=== PATIENT | male | born 1950 | race Two or more races ===

== ENCOUNTER 2017-02-23 08:05 | Inpatient (IN) | payer MEDICARE, MEDICAID ==
[~2017-02-23] VITALS: Ht 180.3 cm; Wt 95.3 kg
[2017-02-23] VITALS (15 sets, daily range): BP systolic 118–140; BP diastolic 64–86
[~2017-02-23 08:05] MED LIST: ceFAZolin 1gm/50ml Premix 50 ML IV ONE
[2017-02-23] MEDS ORDERED: NKM (08:42)
[2017-02-23] MEDS ORDERED: cholesterol pill (08:52)
--- NOTE | 2017-02-23 09:43 | Pre-Procedure Note/Attestation ---
Pre-Procedure Note/Attestation Complete Prior to Procedure Planned Procedure: not applicable Procedure Narrative: Laparoscopic radical prostatectomy Indications for Procedure Pre-Operative Diagnosis: prostate cancer Attestation I attest that I discussed the nature of the procedure; its benefits; risks and complications; and alternatives (and the risks and benefits of such alternatives ), prior to the procedure, with the patient (or the patient's legal sales representative public utilities). I attest that, if there was a reasonable possibility of needing a blood transfusion, the patient (or the patient's legal sales representative public utilities) was given the [facility] standardized written summary, pursuant to the Chandana [place] Blood Safety Act ([place] Health and Safety Code # 1645, as amended). I attest that I re-evaluated the patient just prior to the surgery and that there has been no change in the patient's H&P, except as documented below: Oscar Appiah MD Feb 23, 2017 09:43
[2017-02-23] MEDS ORDERED: NS Irrig 1000ml ONE (10:00)
[2017-02-23] MEDS ORDERED: Zemuron 50mg/5ml Inj IV ONE (10:00)
[2017-02-23] MEDS ORDERED: Neostigmine 1mg/ml 10ml Inj ONE (10:00)
[2017-02-23] MEDS ORDERED: Sterile Water Irrig 1000ml IRRIG ONE (10:00)
[2017-02-23] MEDS ORDERED: LR 1000ml ONE (10:00)
[2017-02-23] MEDS ORDERED: Propofol 200mg/20ml IV ONE (10:00)
[2017-02-23] MEDS ORDERED: Midazolam 2mg/2ml Inj ONE (10:00)
[2017-02-23] MEDS ORDERED: Glycopyrrolate 0.2mg/ml 1ml Vial ONE (10:00)
[2017-02-23] MEDS ORDERED: Succinylcholine 20mg/ml 10ml vial ONE (10:00)
[2017-02-23] MEDS ORDERED: ePHEDrine 50mg/ml Inj ONE (10:00)
[2017-02-23] MEDS ORDERED: LR 1000ml 1,000 ML IVLG SCH (10:06)
--- NOTE | 2017-02-23 10:06 | Anethesia Preoperative Eval ---
Anesthesia Pre-op PMH/ROS General Date of Evaluation: Feb 23, 2017 Time of Evaluation: 09:51 Anesthesiologist: Hallie ASA Score: ASA 3 Mallampati Score Class I : Soft palate, uvula, fauces, pillars visible Class II: Soft palate, uvula, fauces visible Class III: Soft palate, base of uvula visible Class IV: Only hard plate visible Mallampati Classification: Class III Surgeon: Bijal Diagnosis: Prostate CA Surgical Procedure: lap retropubic radical prostatectomy Anesthesia History: none Family History: no anesthesia problems Allergies: Coded Allergies: No Known Allergies (Unverified , 02/22/17) Medications: see eMAR Past Medical History Cardiovascular: Reports: HTN, other - HL Endocrine: Reports: hypothyroidism Other: obesity PSxH Narrative: A CHILD Anesthesia Pre-op Phys. Exam Physician Exam Last Vital Signs Date Time Temp Pulse Resp B/P (MAP) Pulse Ox O2 Delivery O2 Flow Rate FiO2 02/23/17 08:53 97.7 69 18 140/83 95 Room Air Constitutional: NAD Cardiovascular: RRR Respiratory: CTA Airway Exam Mallampati Score: Class III MO: full ROM: full Teeth: missing Anesthesia Pre-op A/P Labs 13 hb Studies Pre-op Studies: EKG Risk Assessment & Plan Assessment: ASA 3 Plan: Bibi Lindsey M.D. Feb 23, 2017 10:06
[2017-02-23] MEDS ORDERED: Surgicel 4in x 8in TOPIC ONE (10:07)
[2017-02-23] MEDS ORDERED: Bupivacaine 0.5% Inj 30 ml vial INJ ONE (10:07)
[2017-02-23] MEDS ORDERED: Meperidine 25mg/0.5ml Inj (FOR RIGORS ONLY) IV PRN (10:15)
[2017-02-23] MEDS ORDERED: Hydromorphone 0.5mg/0.5ml inj IVP PRN (10:15)
[2017-02-23] MEDS ORDERED: fentaNYL 100 mcg/2 mL IV PRN (10:15)
[2017-02-23] MEDS ORDERED: NS Irrig 1000ml IRRIG ONE (10:50)
[2017-02-23] MEDS ORDERED: ProvayBlue 5mg/ml 10ml amp INJ ONE (11:00)
--- NOTE | 2017-02-23 13:21 | Brief Operative Note ---
Immediate Post Operative Note Operative Note Pre-op Diagnosis: prostate cancer Procedure: laparoscopic prostatectomy Post-op Diagnosis: same Surgeon: Mike Lovelace Internal Combustion Engine Subassembler: Emil Garcia Anesthesia: general Specimen: yes Complications: none Condition: stable Fluids: 3000 Estimated Blood Loss: minimal Drains: LISE Implant(s) used?: No Oscar Appiah MD Feb 23, 2017 13:21
[2017-02-23] MEDS ORDERED: Metoclopramide 10mg/2ml Inj IVP PRN (13:30)
[2017-02-23] MEDS ORDERED: HYDROmorphone 1mg/ml Carpuject IVP PRN (13:30)
[2017-02-23] MEDS ORDERED: Ketorolac 30mg Inj IV PRN (13:30)
--- NOTE | 2017-02-23 14:28 | Immediate Post-Op Evaluation ---
Immediate Post-Op Evalulation Immediate Post-Op Evalulation Procedure: lap assisted RRP Date of Evaluation: Feb 23, 2017 Time of Evaluation: 13:39 IV Fluids: 2800 Blood Products: NO Estimated Blood Loss: 500 Urinary Output: 150 Blood Pressure Systolic: 125 Blood Pressure Diastolic: 81 Pulse Rate: 90 Respiratory Rate: 18 Temperature (Fahrenheit): 97.3 Pain Score (1-10): 0 Nausea: No Vomiting: No Patient Status: awake Hydration Status: adequate Drug: CEFAZOLIN Given Within 1 Hr of Incision: Yes Time Given: 10:32 Bibi Sterling M.D. Feb 23, 2017 14:28
[2017-02-23 15:06] LABS: MEAN CORPUSCULAR HEMOGLOBIN 32.4 PG (27.0-31.0); MEAN CORPUSCULAR HGB CONC 33.7 G/DL (32.0-36.0); MEAN CORPUSCULAR VOLUME 96 FL (80-99); MEAN PLATELET VOLUME 6.1 FL (6.5-10.1); PLATELET COUNT 269 K/UL (150-450); RED BLOOD COUNT 4.34 M/UL (4.70-6.10); RED CELL DISTRIBUTION WIDTH 11.5 % (11.6-14.8); WHITE BLOOD COUNT 13.1 K/UL (4.8-10.8)
[2017-02-23 15:18] LABS: ANION GAP 11 (5-15); CALCIUM 8.9 mg/dL (8.6-10.2); CARBON DIOXIDE 28 mEQ/L (20-30); CHLORIDE 99 mEQ/L (98-107); GLOMERULAR FILTRATION RATE > 60 mL/min (>60); HEMOLYSIS 5; SODIUM 138 mEQ/L (135-145)
[2017-02-23] MEDS: D5 1/2NS w/KCl 20mEq 1,000 ML IV SCH (16:14)
[2017-02-23] MEDS: ceFAZolin 2gm/50 ML IV SCH (17:27)
[2017-02-23] MEDS: Docusate 100mg cap ORAL SCH (17:27)
[2017-02-23 18:14] LABS: LYMPHOCYTES % (MANUAL) 9 % (20-45); NEUTROPHILS % (MANUAL) 88 % (45-75); PLATELET MORPHOLOGY NORMAL; TOTAL CELLS COUNTED 100
[2017-02-23 18:15] LABS: BAND NEUTROPHILS % (MANUAL) 0 % (0-8); BASOPHILS % (MANUAL) 0 % (0-2); EOSINOPHILS % (MANUAL) 0 % (0-3); PLATELET ESTIMATE ADEQUATE
[2017-02-23] MEDS ORDERED: ceFAZolin sod 2 GM in D5W 110 ML IV SCH (18:30)
--- NOTE | 2017-02-23 18:52 | History and Physical ---
History of Present Illness Present Illness Allergies: Coded Allergies: No Known Allergies (Unverified , 02/22/17) Medication History Miscellaneous Medications [cholesterol pill], Unknown Dose, (Reported) Patient History Healthcare decision maker Resuscitation status Full Code Advanced Directive on File No Physical Exam Last 24 Hour Vital Signs Date Time Temp Pulse Resp B/P (MAP) Pulse Ox O2 Delivery O2 Flow Rate FiO2 02/23/17 16:31 97.8 88 15 120/70 93 Room Air 02/23/17 16:30 97.8 89 15 120/70 89 Room Air 02/23/17 16:28 97.2 88 15 120/70 89 Room Air 02/23/17 15:15 97.2 86 15 118/64 95 Nasal Cannula 3.0 93 02/23/17 14:45 97.2 84 15 120/70 95 Nasal Cannula 3.0 93 02/23/17 14:35 98.0 75 13 122/70 95 Nasal Cannula 3.0 02/23/17 14:28 90 18 02/23/17 14:25 80 21 124/86 91 Nasal Cannula 3.0 02/23/17 14:10 79 11 121/80 93 Nasal Cannula 3.0 02/23/17 14:00 89 13 130/77 95 Nasal Cannula 3.0 02/23/17 13:50 83 13 120/84 95 Nasal Cannula 3.0 02/23/17 13:42 92 15 128/71 90 Simple Mask 6.0 02/23/17 13:37 82 18 129/76 90 Simple Mask 6.0 02/23/17 13:32 97.2 82 18 125/82 87 Simple Mask 6.0 02/23/17 08:53 97.7 69 18 140/83 95 Room Air Intake and Output 02/23/17 02/24/17 19:00 07:00 Intake Total 2900 ml Output Total 1320 ml Balance 1580 ml Intake IV Total 2900 ml Output Urine Total 800 ml Drainage Total 20 ml Estimated Blood Loss 500 ml # Voids 1 Laboratory Tests Test 02/23/17 14:55 White Blood Count 13.1 K/UL (4.8-10.8) H Red Blood Count 4.34 M/UL (4.70-6.10) L Hemoglobin 14.1 G/DL (14.2-18.0) L Hematocrit 41.7 % (42.0-52.0) L Mean Corpuscular Volume 96 FL (80-99) Mean Corpuscular Hemoglobin 32.4 PG (27.0-31.0) H Mean Corpuscular Hemoglobin Concent 33.7 G/DL (32.0-36.0) Red Cell Distribution Width 11.5 % (11.6-14.8) L Platelet Count 269 K/UL (150-450) Mean Platelet Volume 6.1 FL (6.5-10.1) L Neutrophils (%) (Auto) % (45.0-75.0) Lymphocytes (%) (Auto) % (20.0-45.0) Monocytes (%) (Auto) % (1.0-10.0) Eosinophils (%) (Auto) % (0.0-3.0) Basophils (%) (Auto) % (0.0-2.0) Differential Total Cells Counted 100 Neutrophils % (Manual) 88 % (45-75) H Lymphocytes % (Manual) 9 % (20-45) L Monocytes % (Manual) 3 % (1-10) Eosinophils % (Manual) 0 % (0-3) Basophils % (Manual) 0 % (0-2) Band Neutrophils 0 % (0-8) Platelet Estimate Adequate Platelet Morphology Normal Red Blood Cell Morphology Normal Sodium Level 138 mEQ/L (135-145) Potassium Level 4.0 mEQ/L (3.4-4.9) Chloride Level 99 mEQ/L (98-107) Carbon Dioxide Level 28 mEQ/L (20-30) Anion Gap 11 (5-15) Blood Urea Nitrogen 13 mg/dL (7-23) Creatinine 1.0 mg/dL (0.7-1.2) Estimat Glomerular Filtration Rate > 60 mL/min (>60) Glucose Level 203 mg/dL (74-106) H Calcium Level 8.9 mg/dL (8.6-10.2) Height (Feet): 5 Height (Inches): 11.00 Weight (Pounds): 210 Medications Current Medications Medications (Trade) Dose Ordered Sig/Sarah Route PRN Reason Start Time Stop Time Status Last Admin Dose Admin Acetaminophen (Tylenol) 650 mg Q4H PRN ORAL FEVER 02/23/17 13:30 03/25/17 13:29 Acetaminophen (Tylenol) 650 mg Q6H PRN ORAL Mild Pain (Pain Scale 1-3) 02/23/17 13:30 03/25/17 13:29 Cefazolin Sodium 50 ml @ 100 mls/hr Q8H IV 02/23/17 18:30 02/24/17 02:59 02/23/17 17:27 Dextrose/ Electrolytes 1,000 ml @ 100 mls/hr Q10H IV 02/23/17 16:00 03/25/17 15:59 02/23/17 16:14 Docusate Sodium (Colace) 100 mg TWICE A DAY ORAL 02/23/17 18:00 03/25/17 17:59 Hydromorphone HCl (Dilaudid) 1 mg Q3H PRN IVP pain score 4-6 02/23/17 13:30 03/02/17 13:29 Ketorolac Tromethamine (Toradol 30mg) 15 mg Q6H PRN IV Breakthrough Pain 02/23/17 13:30 02/28/17 13:29 Metoclopramide HCl (Reglan) 10 mg Q6H PRN IVP Nausea & Vomiting 02/23/17 13:30 03/25/17 13:29 Ondansetron HCl (Zofran) 4 mg Q6H PRN IVP Nausea & Vomiting 02/23/17 13:30 03/25/17 13:29 Temazepam (Restoril) 7.5 mg HSPRN PRN ORAL Insomnia 02/23/17 13:30 03/02/17 13:29 SEAN SILVA Feb 23, 2017 18:52
[2017-02-24] VITALS: BP 103/69
[2017-02-24] MEDS: ceFAZolin 2gm/50 ML IV SCH (02:33)
[2017-02-24] MEDS: D5 1/2NS w/KCl 20mEq 1,000 ML IV SCH ×2 (02:33→13:13)
[2017-02-24 04:00] VITALS: BP 123/78
[2017-02-24 08:00] VITALS: BP 117/71
[2017-02-24 08:00] LABS: BASOPHILS % (AUTO) 0.8 % (0.0-2.0); LYMPHOCYTES % (AUTO) 17.6 % (20.0-45.0); MEAN CORPUSCULAR HEMOGLOBIN 32.8 PG (27.0-31.0); MEAN CORPUSCULAR VOLUME 96 FL (80-99); MEAN PLATELET VOLUME 6.4 FL (6.5-10.1); MONOCYTES % (AUTO) 6.5 % (1.0-10.0); NEUTROPHILS % (AUTO) 75.2 % (45.0-75.0); PLATELET COUNT 199 K/UL (150-450); RED BLOOD COUNT 3.93 M/UL (4.70-6.10); RED CELL DISTRIBUTION WIDTH 11.3 % (11.6-14.8); WHITE BLOOD COUNT 8.8 K/UL (4.8-10.8)
[2017-02-24 08:16] LABS: ANION GAP 11 (5-15); CALCIUM 9.1 mg/dL (8.6-10.2); CARBON DIOXIDE 28 mEQ/L (20-30); CHLORIDE 101 mEQ/L (98-107); CREATININE 0.9 mg/dL (0.7-1.2); GLOMERULAR FILTRATION RATE > 60 mL/min (>60); HEMOLYSIS 17; POTASSIUM 4.4 mEQ/L (3.4-4.9); SODIUM 140 mEQ/L (135-145)
[2017-02-24] MEDS: Docusate 100mg cap ORAL SCH ×2 (08:25→17:28)
--- NOTE | 2017-02-24 10:08 | Pulmonology Progress Note ---
Assessment/Plan Assessment/Plan ASSESSMENT PROSTATE CA s/p 02/23 LAPAROSCOPIC PROSTATECTOMY PLAN OF CARE MS floor IVF Pain management abx bowel regimen NPO until bowel function returns antiemetic prn monitor LISE drain output IS at the bedside, encourage to use ambulate case discussed and evaluated by supervising physician Subjective Allergies: Coded Allergies: No Known Allergies (Unverified , 02/22/17) Subjective leukocytosis resolved, afebrile Objective Last 24 Hour Vital Signs Date Time Temp Pulse Resp B/P (MAP) Pulse Ox O2 Delivery O2 Flow Rate FiO2 02/24/17 04:00 98.6 85 16 123/78 96 Nasal Cannula 3.0 02/24/17 00:00 98.5 89 16 103/69 95 Nasal Cannula 3.0 02/23/17 20:00 97.0 92 16 123/79 95 Nasal Cannula 3.0 02/23/17 16:31 97.8 88 15 120/70 93 Room Air 02/23/17 16:30 97.8 89 15 120/70 89 Room Air 02/23/17 16:28 97.2 88 15 120/70 89 Room Air 02/23/17 15:15 97.2 86 15 118/64 95 Nasal Cannula 3.0 93 02/23/17 14:45 97.2 84 15 120/70 95 Nasal Cannula 3.0 93 02/23/17 14:35 98.0 75 13 122/70 95 Nasal Cannula 3.0 02/23/17 14:28 90 18 02/23/17 14:25 80 21 124/86 91 Nasal Cannula 3.0 02/23/17 14:10 79 11 121/80 93 Nasal Cannula 3.0 02/23/17 14:00 89 13 130/77 95 Nasal Cannula 3.0 02/23/17 13:50 83 13 120/84 95 Nasal Cannula 3.0 02/23/17 13:42 92 15 128/71 90 Simple Mask 6.0 02/23/17 13:37 82 18 129/76 90 Simple Mask 6.0 02/23/17 13:32 97.2 82 18 125/82 87 Simple Mask 6.0 General Appearance: WD/WN, no acute distress HEENT: normocephalic, atraumatic, anicteric, PERRL Respiratory/Chest: lungs clear, normal breath sounds, no respiratory distress, no accessory muscle use Cardiovascular: normal peripheral pulses, normal rate, regular rhythm Abdomen: soft, non tender - LISE drain with serosanguinous output, few laparascopic incisions, covered with small dressings, intact , hypoactive bowel sounds Genitourinary: other - Persaud with clear urine Extremities: no edema, pedal pulses normal 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, no motor/sensory deficits, alert, oriented x 3, responsive Musculoskeletal: normal muscle bulk Laboratory Tests 02/23/17 14:55: White Blood Count 13.1H, Red Blood Count 4.34L, Hemoglobin 14.1L, Hematocrit 41.7L, Mean Corpuscular Volume 96, Mean Corpuscular Hemoglobin 32.4H, Mean Corpuscular Hemoglobin Concent 33.7, Red Cell Distribution Width 11.5L, Platelet Count 269, Mean Platelet Volume 6.1L, Neutrophils (%) (Auto) , Lymphocytes (%) (Auto) , Monocytes (%) (Auto) , Eosinophils (%) (Auto) , Basophils (%) (Auto) , Differential Total Cells Counted 100, Neutrophils % ( Manual) 88H, Lymphocytes % (Manual) 9L, Monocytes % (Manual) 3, Eosinophils % ( Manual) 0, Basophils % (Manual) 0, Band Neutrophils 0, Platelet Estimate Adequate, Platelet Morphology Normal, Red Blood Cell Morphology Normal, Sodium Level 138, Potassium Level 4.0, Chloride Level 99, Carbon Dioxide Level 28, Anion Gap 11, Blood Urea Nitrogen 13, Creatinine 1.0, Estimat Glomerular Filtration Rate > 60, Glucose Level 203H, Calcium Level 8.9 02/24/17 07:25: White Blood Count 8.8, Red Blood Count 3.93L, Hemoglobin 12.9L, Hematocrit 37.9L , Mean Corpuscular Volume 96, Mean Corpuscular Hemoglobin 32.8H, Mean Corpuscular Hemoglobin Concent 34.0, Red Cell Distribution Width 11.3L, Platelet Count 199, Mean Platelet Volume 6.4L, Neutrophils (%) (Auto) 75.2H, Lymphocytes (%) (Auto) 17.6L, Monocytes (%) (Auto) 6.5, Eosinophils (%) (Auto) 0.0, Basophils (%) (Auto) 0.8, Sodium Level 140, Potassium Level 4.4, Chloride Level 101, Carbon Dioxide Level 28, Anion Gap 11, Blood Urea Nitrogen 13, Creatinine 0.9, Estimat Glomerular Filtration Rate > 60, Glucose Level 133H, Calcium Level 9.1 Current Medications Medications (Trade) Dose Ordered Sig/Sarah Route PRN Reason Start Time Stop Time Status Last Admin Dose Admin Acetaminophen (Tylenol) 650 mg Q4H PRN ORAL FEVER 02/23/17 13:30 03/25/17 13:29 Acetaminophen (Tylenol) 650 mg Q6H PRN ORAL Mild Pain (Pain Scale 1-3) 02/23/17 13:30 03/25/17 13:29 Dextrose/ Electrolytes 1,000 ml @ 100 mls/hr Q10H IV 02/23/17 16:00 03/25/17 15:59 02/24/17 02:33 Docusate Sodium (Colace) 100 mg TWICE A DAY ORAL 02/23/17 18:00 03/25/17 17:59 Hydromorphone HCl (Dilaudid) 1 mg Q3H PRN IVP pain score 4-6 02/23/17 13:30 03/02/17 13:29 Ketorolac Tromethamine (Toradol 30mg) 15 mg Q6H PRN IV Breakthrough Pain 02/23/17 13:30 02/28/17 13:29 Metoclopramide HCl (Reglan) 10 mg Q6H PRN IVP Nausea & Vomiting 02/23/17 13:30 03/25/17 13:29 Ondansetron HCl (Zofran) 4 mg Q6H PRN IVP Nausea & Vomiting 02/23/17 13:30 03/25/17 13:29 Temazepam (Restoril) 7.5 mg HSPRN PRN ORAL Insomnia 02/23/17 13:30 03/02/17 13:29 Avani Fishman NP (Vanchtein) Feb 24, 2017 10:08
[2017-02-24 12:00] VITALS: BP 117/73
--- NOTE | 2017-02-24 12:58 | 48 Hour Post Anesthesia Eval ---
Post Anesthesia Evaluation Procedure: lap assisted RRP Date of Evaluation: Feb 24, 2017 Time of Evaluation: 12:56 Blood Pressure Systolic: 116 0: 74 Pulse Rate: 68 Respiratory Rate: 20 Temperature (Fahrenheit): 97.6 O2 Sat by Pulse Oximetry: 98 Airway: patent Nausea: No Vomiting: No Pain Intensity: 3 Hydration Status: adequate Cardiopulmonary Status: stable Mental Status/LOC: patient returned to baseline Follow-up Care/Observations: n/a Post-Anesthesia Complications: none Follow-up care needed: N/A NINA ROBIN M.D. Feb 24, 2017 12:58
[2017-02-24 16:00] VITALS: BP 120/70
[2017-02-24 20:00] VITALS: BP 132/74
[2017-02-25] VITALS: BP 119/71
[2017-02-25 04:30] VITALS: BP 126/79
[2017-02-25 07:07] LABS: BASOPHILS % (AUTO) 0.5 % (0.0-2.0); EOSINOPHILS % (AUTO) 0.9 % (0.0-3.0); LYMPHOCYTES % (AUTO) 26.8 % (20.0-45.0); MEAN CORPUSCULAR HEMOGLOBIN 33.1 PG (27.0-31.0); MEAN CORPUSCULAR VOLUME 97 FL (80-99); MEAN PLATELET VOLUME 6.5 FL (6.5-10.1); MONOCYTES % (AUTO) 9.5 % (1.0-10.0); NEUTROPHILS % (AUTO) 62.4 % (45.0-75.0); PLATELET COUNT 207 K/UL (150-450); RED BLOOD COUNT 3.83 M/UL (4.70-6.10); RED CELL DISTRIBUTION WIDTH 11.9 % (11.6-14.8); WHITE BLOOD COUNT 6.7 K/UL (4.8-10.8)
[2017-02-25 07:15] LABS: ANION GAP 8 (5-15); CALCIUM 9.8 mg/dL (8.6-10.2); CARBON DIOXIDE 32 mEQ/L (20-30); CHLORIDE 102 mEQ/L (98-107); GLOMERULAR FILTRATION RATE > 60 mL/min (>60); HEMOLYSIS 0; POTASSIUM 4.5 mEQ/L (3.4-4.9); SODIUM 142 mEQ/L (135-145)
[2017-02-25 08:00] VITALS: BP 138/85
--- NOTE | 2017-02-25 09:02 | Operative Note - Dictated ---
DATE OF OPERATION: 02/23/2017 OPERATING SURGEON: Emil Garcia M.D. UC ARCHITECT: Oscar Appiah M.D. ANESTHESIA: General endotracheal. Indication: The patient is a 66-year-old male with prostate cancer, who was taken to the operating room by Dr. Appiah for laparoscopic radical prostatectomy. During the procedure, the patient started by Dr. Appiah, dense adhesions between the sigmoid colon, omentum and anterior abdominal wall were encountered that precluded safe access to the prostate gland. I was requested by Dr. Oscar Appiah to perform laparoscopic lysis of adhesions to gain access to the prostate gland. Description of Procedure: The patient was placed supine. General endotracheal anesthesia was induced. The abdomen was prepped and draped in usual sterile fashion. Dr. Appiah started by creating 01:49 the initial trocar. This will be reported in his operative report separately. After the above-mentioned findings were appreciated, I scrubbed him and started by taking down the adhesions between the greater omentum and anterior abdominal wall using electrocautery and blunt dissection were possible. When omentum was off the anterior abdominal wall, the sigmoid colon was found to be adherent to the pelvic inlet. Using sharp and blunt dissection, I was able to divide the adhesions between the sigmoid colon and left lower quadrant and reflect it all . After that, straight access to the prostate gland was gained. The hemostasis was confirmed. No injury to the bowel was found upon inspection, and the rest of the procedure was performed by Dr. Appiah and he will dictate it separately. Emil Garcia M.D. DR: ABBEY JOB#: [id number] CC:
[2017-02-25] MEDS: Docusate 100mg cap ORAL SCH (09:42)
[2017-02-25] MEDS ORDERED: Milk of Magnesia 30ml Ud ORAL PRN (10:45)
--- NOTE | 2017-02-25 11:00 | Pulmonology Progress Note ---
Assessment/Plan Assessment/Plan ASSESSMENT PROSTATE CA s/p 02/23 LAPAROSCOPIC PROSTATECTOMY PLAN OF CARE MS floor IVF Pain management abx bowel regimen tolerated CL diet antiemetic prn ILSE drain dc this am by surgeon IS at the bedside, encourage to use while in the bed ambulated surgeon cleared for dc with leg bag scripts provided fup with surgeon on Tuesday case discussed and evaluated by supervising physician Subjective Allergies: Coded Allergies: No Known Allergies (Unverified , 02/22/17) Subjective leukocytosis resolved, afebrile started on CL diet tolerated Objective Last 24 Hour Vital Signs Date Time Temp Pulse Resp B/P (MAP) Pulse Ox O2 Delivery O2 Flow Rate FiO2 02/25/17 08:00 97.2 80 17 138/85 98 Nasal Cannula 3.0 02/25/17 04:30 98.5 81 18 126/79 97 Nasal Cannula 3.0 02/25/17 00:00 98.3 82 18 119/71 96 Nasal Cannula 3.0 02/24/17 20:00 97.5 77 18 132/74 96 Nasal Cannula 3.0 02/24/17 16:00 97.3 79 18 120/70 95 Nasal Cannula 3.0 02/24/17 12:58 68 20 98 02/24/17 12:00 98.5 75 18 117/73 94 Nasal Cannula 3.0 Objective General Appearance: WD/WN, no acute distress HEENT: normocephalic, atraumatic, anicteric, PERRL Respiratory/Chest: lungs clear, normal breath sounds, no respiratory distress, no accessory muscle use Cardiovascular: normal peripheral pulses, normal rate, regular rhythm Abdomen: soft, non tender , mild distention , + BS, few laparoscopic incisions , covered with small dressings, intact , hypoactive bowel sounds Genitourinary: Persaud with clear urine Extremities: no edema, pedal pulses normal 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 Complete Laboratory Tests 02/25/17 05:15: White Blood Count 6.7, Red Blood Count 3.83L, Hemoglobin 12.7L, Hematocrit 37.3L , Mean Corpuscular Volume 97, Mean Corpuscular Hemoglobin 33.1H, Mean Corpuscular Hemoglobin Concent 34.0, Red Cell Distribution Width 11.9, Platelet Count 207, Mean Platelet Volume 6.5, Neutrophils (%) (Auto) 62.4, Lymphocytes (% ) (Auto) 26.8, Monocytes (%) (Auto) 9.5, Eosinophils (%) (Auto) 0.9, Basophils ( %) (Auto) 0.5, Sodium Level 142, Potassium Level 4.5, Chloride Level 102, Carbon Dioxide Level 32H, Anion Gap 8, Blood Urea Nitrogen 10, Creatinine 1.0, Estimat Glomerular Filtration Rate > 60, Glucose Level 115H, Calcium Level 9.8 Current Medications Medications (Trade) Dose Ordered Sig/Sarah Route PRN Reason Start Time Stop Time Status Last Admin Dose Admin Acetaminophen (Tylenol) 650 mg Q4H PRN ORAL FEVER 02/23/17 13:30 03/25/17 13:29 Acetaminophen (Tylenol) 650 mg Q6H PRN ORAL Mild Pain (Pain Scale 1-3) 02/23/17 13:30 03/25/17 13:29 Docusate Sodium (Colace) 100 mg TWICE A DAY ORAL 02/23/17 18:00 03/25/17 17:59 02/25/17 09:42 Hydromorphone HCl (Dilaudid) 1 mg Q3H PRN IVP pain score 4-6 02/23/17 13:30 03/02/17 13:29 Ketorolac Tromethamine (Toradol 30mg) 15 mg Q6H PRN IV Breakthrough Pain 02/23/17 13:30 02/28/17 13:29 Magnesium Hydroxide (Mom) 30 ml DAILYPRN PRN ORAL Constipation 02/25/17 10:45 03/27/17 10:44 Metoclopramide HCl (Reglan) 10 mg Q6H PRN IVP Nausea & Vomiting 02/23/17 13:30 03/25/17 13:29 Ondansetron HCl (Zofran) 4 mg Q6H PRN IVP Nausea & Vomiting 02/23/17 13:30 03/25/17 13:29 Temazepam (Restoril) 7.5 mg HSPRN PRN ORAL Insomnia 02/23/17 13:30 03/02/17 13:29 Avani Fishman NP (Vanchtein) Feb 25, 2017 11:00
[2017-02-25] MEDS ORDERED: LEVAQUIN250 M1 ORAL (12:34)
[2017-02-25] MEDS ORDERED: TYLENOL325 MG ORAL (12:37)
[2017-02-25] MEDS ORDERED: DOCUSATE SODIU100 MG ORAL (12:38)
--- NOTE | 2017-02-28 12:14 | Discharge Summary ---
Discharge Summary Hospital Course Date of Admission Feb 23, 2017 at 08:05 Date of Discharge Feb 25, 2017 at 13:00 Admitting Diagnosis JOHANNA Damian is a 66 year old male who was admitted on Feb 23, 2017 at 08: 05 for Prostate Cancer Hospital Course dc summary #[id number] Discharge Medications Continued Medications: Acetaminophen (Tylenol) 325 Mg Tablet 650 MG ORAL Q4HR PRN for Prn Pain/Headache/Temp > 101, #30 TAB 0 Refills Docusate Sodium* (Docusate Sodium*) 100 Mg Capsule 100 MG ORAL TWICE A DAY for 28 Days, CAP Levofloxacin* (Levaquin*) 250 Mg Tablet 250 MG ORAL DAILY for 7 Days, TAB [cholesterol pill] () Unknown Dose Discharge Condition Upon Discharge: stable Discharge Disposition Patient was discharged to Home (01) Discharge Diagnoses: Kye (Wu),Avani FIGUEROA Feb 28, 2017 12:14
--- NOTE | 2017-03-01 01:30 | Operative Note - Dictated ---
DATE OF OPERATION: 02/23/2017 PREOPERATIVE DIAGNOSIS: Prostate cancer. POSTOPERATIVE DIAGNOSIS: Prostate cancer. OPERATION: Laparoscopic radical prostatectomy. SURGEON: Oscar Appiah M.D. ANESTHESIA: General. FINDINGS: Enlarged prostate. Indication For Surgery: The patient has an enlarged prostate. The patient was diagnosed with Luz Marina 7 prostate cancer. Treatment options were explained to him at great length including all potential complications. He signed a consent. Description Of Procedure: He was brought to the operating room, placed in the supine position and prepped and draped in standard fashion under general anesthesia. Veress needle was placed. Pneumoperitoneum was created to 15 mmHg. Five trocars, two 12s and three 5s were placed in the standard position. Dr. Garcia performed lysis of adhesions and mobilization of the colon to expose the retrovesical space. After that, dissection was carried anteriorly bladder from the pubis and exposing endopelvic fascia. Endopelvic fascia was opened with the Harmonic scalpel and dorsal venous complex was transected with Endo-WILIAN. After that, bladder was opened and bladder neck was from the prostate using sharp and blunt dissection. The prostate was removed up in its entirety preserving both neurovascular bundles. Urethra was reapproximated with 20-Uzbek Persaud catheter with a bladder neck. The prostate was removed for pathologic examination. LISE drain was placed and left indwelling. A Persaud catheter 20-Uzbek was left indwelling. Sponge count and instrument count was correct. Oscar Appiah M.D. DR: ARELI JOB#: [id number] CC:
--- NOTE | 2017-03-01 04:15 | Discharge Summary 2 SIG ---
DATE OF ADMISSION: 02/23/2017 DATE OF DISCHARGE: 02/25/2017 REASON FOR ADMISSION: This is a 66-year-old male with history of prostate cancer, admitted for elective surgery and subsequently undergone laparoscopic radical prostatectomy on 02/23/2017. The patient was admitted for further management. Admitting Diagnosis: Prostate cancer, status post laparoscopic radical prostatectomy on 02/23/2017. Hospital Course: The patient admitted to medical/surgical floor. The patient was initially on the IV fluids. Analgesia provided. The patient was on empiric antibiotics. The patient initially was NPO until bowel function returned, started on clear liquid diet and advanced as tolerated. The patient was initially with LISE and LISE was pulled out next day by surgeon, minimal serosanguineous output on the first day postop. Leukocytosis present initially resolved. No fever. Unable to ambulate, using incentive spirometer while in bed, tolerated diet, pain controlled. Surgeon cleared for discharge home and follow up with the surgeon. Discharge Diagnosis: Prostate cancer, status post 02/23/2017 laparoscopic prostatectomy. DISCHARGE MEDICATIONS: See medication reconciliation list. Discharge Instructions: The patient was discharged home with home health services and follow up with the surgeon as advised by surgeon. Of note, pathology of prostate tissue was consistent with prostatic adenocarcinoma to foci. Oscar Appiah M.D. I have been assigned to dictate discharge summary on this account and I was not involved in the patient's management. Avani chavezcalos N.P. DR: Alisson JOB#: [id number] CC:
== END 2017-02-25 13:00 | disposition home health service (06) | DRG 708 ==
LOC: SDSOVERFLO 08:05 → 3E 14:56
PROC: 0DNW4ZZ Release Peritoneum, Percutaneous Endoscopic Approach (ICD-10-PCS; principal; 2017-02-23 10:00)
PROC: 0VT04ZZ Resection of Prostate, Percutaneous Endoscopic Approach (ICD-10-PCS; principal; 2017-02-23 10:00)
DX: C61 Malignant neoplasm of prostate (principal); E03.9 Hypothyroidism, unspecified; E78.5 Hyperlipidemia, unspecified; K66.0 Peritoneal adhesions (postprocedural) (postinfection)
CPT/HCPCS: 36415; 80048; 85007; 85025; 86850; 86900; 86901; 87081; 94003; 94150; J2250; J2405; J2710